=== PATIENT | female | born 1950 | race Caucasian/White ===

== ENCOUNTER 2025-03-08 08:08 | Outpatient (AMB) | payer MEDICARE, MEDICAID, SELFPAY ==
--- NOTE | 2025-03-08 08:07 | A.PHYSOV ---
Vital Signs 03/08/25 08:11 Height 5 ft 1 in Weight 158 lb 11.725 oz BMI 30.0 Intake Visit Reasons: NVP SELF REF- B/L KNEE PAIN Intake Note: 74 year old female patient who is a new patient to our practice . Patient is here for bilateral knee pain. No x-rays found Allergies No Known Allergies Allergy (Verified 03/02/25 10:13) HPI Comments Details: History of Present Illness The patient is a 74-year-old female presenting with knee pain due to osteoarthritis. The knee pain has been persistent for approximately 15 to 16 years, with no significant relief from previous interventions such as cortisone injections and viscosupplementation treatments. The patient reports that these treatments provided minimal relief, lasting less than a month. The patient also has a history of hypertension, which she manages with lifestyle modifications rather than medication. She reports using vinegar and lemon as natural remedies to control her blood pressure, which typically ranges from 140 to 150 mmHg. Additionally, the patient experiences back pain, particularly when standing for extended periods, which may be indicative of spinal stenosis. She has not undergone an MRI for her back but has had X-rays of her knees and back in the past. She has had physical therapy for her lower back pain. It did not help. She reports positive for ?shopping cart? sign. Lower back pain subsides with sitting down. She denies any change in bowel bladder habits. She denies any fever or chills. Results - Imaging: Previous X-rays of knees and back, no recent MRI performed. FORMERLY [facility], [facility] Social History (Updated 03/08/25 @ 08:11 by Jennifer Holley MA) Household Members: Spouse Alcohol intake: never Patient Tobacco Use Status: Never used Tobacco Current occupational status: disabled Review of Systems Narrative Review of Systems - Musculoskeletal: Reports chronic knee pain and back pain when standing for extended periods. - Cardiovascular: Denies chest pain or palpitations. - Neurological: Denies dizziness or balance issues. Denies change in bowel bladder habits, denies fever or chills, denies uncontrolled depression or suicidal ideation Physical Exam Exam Exam: Physical Exam Patient appears to be in no acute distress, appropriately conversant oriented. Gait was waddling without antalgia. Pain with palpation of both knees medial joint line. Crepitus with flexion-extension, no ligamentous instability, no effusion. Bilateral lower extremity varicose veins. Lumbar extension was restricted. Dural tension signs were negative. Neurological examination was nonfocal. Patient demonstrated no upper motor neuron signs. Procedures and Interventions Assessment & Plan Assessment & Plan (1) Spinal stenosis, lumbar region with neurogenic claudication: Comment: Recommended lumbosacral spine MRI, follow-up with the results Code(s): M48.062 - Spinal stenosis, lumbar region with neurogenic claudication Category: Medical (2) Knee osteoarthritis: Comment: Recommended consultation with the office that provides stem cell injections and platelet rich plasma injections. Unfortunately those kind of procedures are not covered by the insurance and could be expansive. Also recommended regular supplementation with 2000 mg of turmeric with black pepper daily Code(s): M17.9 - Osteoarthritis of knee, unspecified Category: Medical (3) Lumbar radiculitis: Code(s): M54.16 - Radiculopathy, lumbar region Category: Medical Plan Plan Patient was informed and verbally consented to the use of an ambient scribe for clinic note documentation during this visit. 1. Osteoarthritis Of The Knees The patient has been advised to start taking turmeric supplements as a natural anti-inflammatory measure. She is also considering surgical options but is hesitant due to concerns about postoperative recovery. 2. Hypertension The patient manages her hypertension through lifestyle modifications, including the use of vinegar and lemon, and is advised to monitor her blood pressure regularly. 3. Back Pain With Possible Spinal Stenosis The patient is experiencing back pain, particularly when standing, and an MRI has been suggested to further evaluate the condition. Discussion Notes During the consultation, we discussed the patient's knee osteoarthritis and the limited relief from previous treatments such as cortisone injections and gel applications. I recommended turmeric supplements as a natural anti-inflammatory option and discussed the potential benefits and risks of surgical intervention, noting the patient's concerns about recovery. We also reviewed her hypertension management through lifestyle changes and the need for regular blood pressure monitoring. For her back pain, I suggested an MRI to assess for possible spinal stenosis and discussed the implications of this condition. Patient Instructions - Begin taking turmeric supplements as directed for knee pain management. - Monitor blood pressure regularly and continue using lifestyle modifications to manage hypertension. - Schedule an MRI to evaluate back pain and follow up in one month to review results. Orders: Orders MR lumbar spine wo con Today M48.062 - Spinal stenosis, lumbar region with neurogenic claudication, M54.16 - Radiculopathy, lumbar region Coding Level of Care Code New Pt Level 4 (51935) Complex EM visit Add On G2211 Diagnoses Spinal stenosis, lumbar region with neurogenic claudication M48.062 Knee osteoarthritis M17.9 Lumbar radiculitis M54.16
== END 2025-03-08 08:41 | disposition home or self-care (01) ==
LOC: HO.HPHYS 08:08
PROVIDERS: Visit Provider Physical Medicine & Rehabilitation
DX: M48.062 Spinal stenosis, lumbar region with neurogenic claudication (principal); M17.9 Osteoarthritis of knee, unspecified; M54.16 Radiculopathy, lumbar region
CPT/HCPCS: 99204; G2211

== ENCOUNTER → 2025-03-08 08:08 | Outpatient (BNVA) | payer MEDICARE, MEDICAID, SELFPAY | PROVIDERS: Visit Provider Physical Medicine & Rehabilitation | DX: M48.062 Spinal stenosis, lumbar region with neurogenic claudication (principal); M17.9 Osteoarthritis of knee, unspecified; M54.16 Radiculopathy, lumbar region | CPT/HCPCS: 99202 ==

== ENCOUNTER → 2025-04-18 10:01 | Outpatient (BNV) | payer MEDICARE, MEDICAID, SELFPAY | PROVIDERS: PCP Dentist General Practice; Visit Provider Radiology Diagnostic Radiology | DX: M48.062 Spinal stenosis, lumbar region with neurogenic claudication (principal) | CPT/HCPCS: 72148 ==

== ENCOUNTER 2025-04-18 10:05 | Outpatient (REF) | payer MEDICARE, MEDICAID, SELFPAY ==
--- NOTE | ~2025-04-18 | MR_ITS ---
EXAM: MRI Lumbar Spine without Contrast. TECHNIQUE: Multiplanar multisequence MRI of the lumbar spine with performed without contrast. INDICATION: M48.062 - Spinal stenosis, lumbar region with neurogenic claudication PRIOR: None FINDINGS: 5 non-rib bearing lumbar segments are assumed for numbering purposes. If level specific intervention is planned, correlate with an x-ray to ensure concordant numbering. Marrow and end-plates: There is a lesion throughout most of the left half of the L2 vertebral body that demonstrates increased signal on T1 and T2 sequences with thickened trabeculations consistent with a benign vertebral hemangioma. L4-5 demonstrates a Schmorl's node within L4 and Modic 2 signal. L5-S1 demonstrates Modic 2 signal change. Alignment: L3-4 demonstrates subtle anterolisthesis. L5-S1 demonstrates mild grade 1 retrolisthesis. Soft tissues: Paraspinal soft tissues and major vascular structures are unremarkable. Conus: The termination of conus medullaris is within normal limits at the level of upper L2. T12-L1: There is no disc bulge, herniation, spinal stenosis, or foraminal narrowing. L1-L2: There is no disc bulge, herniation, spinal stenosis, or foraminal narrowing. L2-L3: There is disc desiccation, loss disc height and circumferential broad-based disc bulge. There is mild ligament flavum thickening. There is no spinal stenosis. There is minimal subarticular zone narrowing, left greater than right, without clear nerve root encroachment. There is no foraminal narrowing. L3-L4: There is mild loss disc height and circumferential broad-based disc bulge. There is moderate facet hypertrophy and ligamentum flavum thickening with trace fluid in the left facet joint. There is moderate spinal stenosis, greater on the left with possible encroachment of left L4 nerve roots in the subarticular zone. There is mild bilateral foraminal narrowing. L4-L5: There is moderate loss disc height and degenerative endplate changes with circumferential broad-based disc bulge and right central annular fissuring. There is mild facet arthropathy and ligamentum flavum thickening resulting in mild spinal stenosis. There is mild right greater than left foraminal narrowing. L5-S1: There is disc desiccation, loss of disc height, and circumferential broad-based disc bulge with broad posterior disc extrusion and left central annular fissuring not resulting in spinal stenosis. However, there is possible encroachment of left S1 nerve root in the subarticular zone. There is moderate narrowing of bilateral foramina with possible L5 nerve root encroachment. MR/MR lumbar spine wo con IMPRESSION: L2-L3: There is minimal subarticular zone narrowing, left greater than right, without clear nerve root encroachment. L3-L4: There is moderate spinal stenosis, greater on the left, with possible encroachment of left L4 nerve roots in the subarticular zone. L4-L5: There is mild spinal stenosis. L5-S1: There is possible encroachment of left S1 nerve root in the subarticular zone. There is moderate narrowing of bilateral neural foramina with possible bilateral L5 nerve root encroachment. Electronically signed by: Ace Franklin MD 04/18/2025 12:48 PM [facility]
--- OUTSIDE RECORDS SUMMARY | 2025-04-18 12:09 | XMS_ITS ---
Author Name [facility] Organization Unknown Encounters Encounter Type Encounter Reason Primary Diagnosis Location Date Ambulatory [facility] 02/24/2024 Care Team Organization Name Specialty Phone Email Start Date End Da te [facility] 08/21/[address] [facility] 02/05/2024 025 [facility] 03/05/2022 025
--- OUTSIDE RECORDS SUMMARY | 2025-04-18 12:09 | XMS_ITS | Clinical Summary ---
Author Organization [facility] Address [address] [place] [address] Care Team Providers Care Grooming Assistant Name Role Phone Physician, No Pcp Primary Care Provider Unavaila ble Social History Tobacco Use Types Packs/Day Years Used Date Smoking Tobacco: Never Assessed Comments Unknown Sex and Gender Information Value Date Recorded Sex Assigned at Not on file Legal Sex Female 3:55 AM EST Gender Identity Not on file Sexual Orientation Not on file Plan of Treatment Upcoming Encounters Date Type Department Care Team (Late st Contact Info) Description 05/16/2025 9:30 AM EST Appointment [facility] [address] [place] [address] Health Maintenance Due Date Last Done Comments Breast Cancer Screening 1950 Colorectal Cancer Screening: Colonoscopy 1950 DTaP,Tdap,and Td Vaccines (1 - Tdap) 07/28/1971 Pneumococcal Vaccine: 50+ Ye ars (1 of 1 - PCV) 2002 Zoster Vaccines (1 of 2) 2002 Depression Screening 04/28/2024 COVID-19 Vaccine (1 - 2024-2 6 season) 2024 Influenza Vaccine (#1) 2024 Cholesterol Screening (Lipid Panel) 03/03/2025 Falls Risk Assessment 03/03/2025 Hepatitis C Screening 03/03/2025 Osteoporosis Screening (Bone Density Screening) 03/03/2025 Social Influencers of Health Screening 03/03/2025 RSV Immunization Adult Patie nts (1 - 1-dose 75+ series) 07/28/2027 HIB Vaccines Aged Out No longer eligi ble based on patient's age to complete this topic HPV Vaccines Aged Out No longer eligi ble based on patient's age to complete this topic Hepatitis A Vaccines Aged Out No long er eligible based on patient's age to complete this topic Hepatitis B Vaccines Aged Out No long er eligible based on patient's age to complete this topic IPV Vaccines Aged Out No longer eligi ble based on patient's age to complete this topic MMR Vaccines Aged Out No longer eligi ble based on patient's age to complete this topic Meningococcal ACWY Vaccine Aged Out N o longer eligible based on patient's age to complete this topic Meningococcal B Vaccine Aged Out No l onger eligible based on patient's age to complete this topic RSV Immunization Patients Un roni 20 months Aged Out No longer eligible b ased on patient's age to complete this topic Varicella Vaccines Aged Out No longer eligible based on patient's age to complete this topic Insurance [place]ICA[place] - [place] Care Teams Grooming Assistant Relationship Specialty Start Date End Date Physician, No Pcp PCP - General 03/03/25
== END 2025-04-18 10:06 | disposition home or self-care (01) ==
LOC: HO.MRI 10:05
PROVIDERS: PCP Dentist General Practice; Visit Provider Physical Medicine & Rehabilitation
DX: M48.062 Spinal stenosis, lumbar region with neurogenic claudication (principal); M54.16 Radiculopathy, lumbar region
CPT/HCPCS: 72148